=== PATIENT | male | born 2000 | race American Indian/Alaskan Native ===

== ENCOUNTER 2020-08-26 14:38 | Emergency (ER) | payer SELFPAY ==
[2020-08-26 18:38] VITALS: BP 135/84
--- NOTE | 2020-08-26 19:16 | Emergency Department Report ---
ED General Adult HPI - General Chief complaint: Fall Stated complaint: BACK PAIN Time Seen by Provider: 08/26/20 19:14 Source: patient Mode of arrival: Ambulatory Limitations: No Limitations - History of Present Illness Initial comments: 20-year-old [id number] male patient presents emergency department with complaints of traumatic left sided back/chest pain and left wrist pain status post mechanical fall. Patient states he was ambulating at ground-level when he accidentally slipped in a puddle of water and landed on his left side. He attem pted to break his fall using his left hand. No head injury or loss of consciousness. No history of prior injuries to the left wrist. He has been ambulatory without assistance since the fall. Denies headache, neck pain, shortness of breath, abdominal pain, syncope, paresthesias, numbness. Denies all other complaints at this time. Severity scale (0 -10): 6 - Related Data Previous Rx's Medication Instructions Recorded Last Taken Type Naproxen 500 mg PO BID #20 tablet 08/26/20 Unknown Rx Allergies Allergy/AdvReac Type Severity Reaction Status Date / Time No Known Allergies Allergy Unverified 08/26/20 18:35 ED Review of Systems ROS: Stated complaint: BACK PAIN Other details as noted in HPI Other: CARDIOVASCULAR: Positive for chest pain. PULMONARY: Negative for dyspnea. GASTROINTESTINAL: Negative for abdominal pain. MUSCULOSKELETAL: Positive for back pain and wrist pain. NEUROLOGICAL: Negative for headache. INTEGUMENTARY: Negative for ecchymosis. ED Past Medical Hx - Past Medical History Previous Medical History?: No - Surgical History Past Surgical History?: No - Medications Home Medications: Home Medications Medication Instructions Recorded Confirmed Last Taken Type Naproxen 500 mg PO BID #20 tablet 08/26/20 Unknown Rx ED Physical Exam - General Limitations: No Limitations - Other Other exam information: General: Awake, appropriately interactive, no acute distress. Neck: Supple. Full range of motion intact. Cardiovascular: Normal peripheral perfusion. Pulmonary: Breath sounds equal and present bilaterally. Left anterolateral chest wall tenderness. No crepitus. No overlying ecchymosis. Breathing is non- paradoxical. Skin: No apparent rashes or lesions. Neurological: No facial asymmetry. Speech is clear. Follows commands. Patient is alert and oriented. Musculoskeletal: Tenderness to palpation throughout the left wrist without obvious deformity or dislocation. No tenderness along the distribution of the anatomical snuffbox. Strong radial pulse. Full range of motion intact. Distal neurovascular and motor/sensory function intact. Psych: Cooperative. Appropriate mood and affect. ED Course Vital Signs 08/26/20 18:35 Temperature 98.0 F Pulse Rate 74 Respiratory 17 Rate Blood Pressure 135/84 [Right] O2 Sat by Pulse 99 Oximetry ED Medical Decision Making - Medical Decision Making Differential diagnosis including but not limited to: sprain, strain, fracture, contusion, dislocation, pneumothorax, hemothorax On reevaluation, patient remains stable. No hypoxia, no respiratory distress. Repeat neurovascular exam remains intact. X-rays without acute process. History and exam findings consistent with soft tissue injury; no clinical indication for further diagnostic work-up on an emergent basis at this time. Patient will be discharged home with appropriate analgesics, Arvin wrap, and referral to primary care provider for close outpatient follow-up. Patient expressed understanding and is agreeable to plan of care. RICE precautions discussed. Strict return precautions provided. Repeat exam is unremarkable and benign. History, exam, diagnostic testing, and current condition do not suggest worrisome pathology to warrant further testing, continued ED treatment, admission, or surgical evaluation at this point. Given the low probability of a significant medical illness, it would be more likely to result in harm than benefit to perform further testing at this stage. Discussed findings, presumptive diagnosis, need for follow-up and specific signs/symptoms that should prompt immediate return to the emergency department. Instructions were explained in detail to the patient in addition to giving written discharge information. Patient expressed understanding and was given the opportunity to ask questions, all of which were satisfactorily answered prior to discharge home. Critical care attestation.: If time is entered above; I have spent that time in minutes in the direct care of this critically ill patient, excluding procedure time. ED Disposition Clinical Impression: Left wrist sprain Qualifiers: Encounter type: initial encounter Qualified Code(s): S63.502A - Unspecified sprain of left wrist, initial encounter Contusion of left chest wall Qualifiers: Encounter type: initial encounter Qualified Code(s): S20.212A - Contusion of left front wall of thorax, initial encounter Disposition: TO HOME OR SELFCARE Is pt being admited?: No Does the pt Need Aspirin: No Condition: Stable Instructions: Wrist Sprain, Adult, Contusion Additional Instructions: Take Tylenol every 4 hours as needed for pain. Take Naprosyn twice daily with food as needed for pain. Apply ice to affected areas as needed for pain. Keep left wrist elevated as often as possible to reduce swelling. Wear Arvin wrap as directed. Follow-up with primary care provider this week. Call tomorrow to schedule an appointment. See referral information below. Return to the emergency department immediately for new or worsening symptoms. Prescriptions: Naproxen 500 mg PO BID #20 tablet Referrals: CHOLO SINGLETON MD [Staff Physician] - 3-5 Days [facility] [place] [Outside] - 3-[address] [facility] [Outside] - 3-5 Days [facility] [Outside] - 3-5 Days [facility] [Provider Group] - 3-5 Days Time of Disposition: 20:34
--- NOTE | 2020-08-26 20:28 | XRay Report ---
CHEST 2 VIEWS INDICATION / CLINICAL INFORMATION: fall onto left side. FINDINGS: SUPPORT DEVICES: None. HEART / MEDIASTINUM: No significant abnormality. LUNGS / PLEURA: No significant pulmonary or pleural abnormality. No pneumothorax. ADDITIONAL FINDINGS: No significant additional findings. IMPRESSION: 1. No acute findings. Signer Name: Ry Anguiano MD Signed: 08/26/2020 8:24 PM Workstation Name: [id number]
--- NOTE | 2020-08-26 20:31 | XRay Report ---
Left wrist 4 views INDICATION: Left wrist pain following injury IMPRESSION: no fracture or subluxation of the left wrist identified. Signer Name: Ry Anguiano MD Signed: 08/26/2020 8:26 PM Workstation Name: [id number]
== END 2020-08-26 20:40 | disposition home or self-care (01) ==
LOC: ED 14:38
DX: S63.592A Other specified sprain of left wrist, initial encounter (principal); S20.212A Contusion of left front wall of thorax, initial encounter; Z79.899 Other long term (current) drug therapy; W18.39XA Other fall on same level, initial encounter; Y93.89 Activity, other specified; Y92.89 Other specified places as the place of occurrence of the external cause; Y99.8 Other external cause status
CPT/HCPCS: 71046; 99283